=== PATIENT | female | born 1990 | race Caucasian/White ===

== ENCOUNTER 2016-11-22 14:23 | Emergency (ER) | payer BC ==
--- NOTE | 2016-11-22 15:22 | ER Document Report ---
ED GI/ - General Chief Complaint: Pelvic Pain Stated Complaint: ABDOMINAL PAIN,VOMITING Time Seen by Provider: 11/22/16 14:51 Mode of Arrival: Ambulatory Information source: Patient Notes: 26-year-old female presents to ED for pelvic pain that started on Tuesday with nausea and vomiting and lightheadedness. She is currently on her. This been going on for over a week. She states she has a history of ovarian cyst. - HPI Patient complains to provider of: Pelvic pain Onset: Other - Since Tuesday Timing/Duration: Persistent Quality of pain: Cramping, Sharp Severity at maximum: Moderate Severity in ED: Moderate Pain Level: 2 Location: Pelvis Vaginal bleeding (Compared to normal period): Similar - On her. Now LMP: States it has been going on for the last week Associated symptoms: Other - Pelvic pain Exacerbated by: Movement Relieved by: Denies Similar symptoms previously: Yes Recently seen / treated by doctor: No - Related Data Allergies/Adverse Reactions: No Known Allergies Allergy (Verified 11/22/16 17:51) Past Medical History - General Information source: Patient - Social History Smoking Status: Never Smoker Cigarette use (# per day): No Chew tobacco use (# tins/day): No Smoking Education Provided: No Frequency of alcohol use: None Drug Abuse: None Occupation: None Lives with: Alone Family History: Malignancy Patient has suicidal ideation: No Patient has homicidal ideation: No - Past Medical History Cardiac Medical History: Reports: None Pulmonary Medical History: Reports: None EENT Medical History: Reports: None Neurological Medical History: Reports: None Endocrine Medical History: Reports: None Renal/ Medical History: Reports: Hx Ovarian Cysts - PCO S Malignancy Medical History: Reports: None GI Medical History: Reports: Hx Gastroesophageal Reflux Disease, Hx Irritable Bowel, Hx Colonoscopy, Hx Endoscopy Musculoskeltal Medical History: Reports Hx Musculoskeletal Deformity, Reports Hx Musculoskeletal Trauma Psychiatric Medical History: Reports: Hx Anxiety Traumatic Medical History: Reports: Hx Fractures - Rib and toe Infectious Medical History: Reports: Hx C-Diff Past Surgical History: Reports: Hx Cholecystectomy - Immunizations Immunizations up to date: Yes Hx Diphtheria, Pertussis, Tetanus Vaccination: Yes Review of Systems - Review of Systems Constitutional: No symptoms reported EENT: No symptoms reported Cardiovascular: No symptoms reported Respiratory: No symptoms reported Gastrointestinal: No symptoms reported Genitourinary: No symptoms reported Female Genitourinary: Vaginal bleeding, Other - Pelvic pain Musculoskeletal: No symptoms reported Skin: No symptoms reported Hematologic/Lymphatic: No symptoms reported Neurological/Psychological: No symptoms reported -: Yes All other systems reviewed and negative Physical Exam - Vital signs Vitals: Temp Pulse Resp BP Pulse Ox 98.3 F 80 14 124/89 H 100 11/22/16 14:31 11/22/16 14:31 11/22/16 14:31 11/22/16 14:31 11/22/16 14:31 Interpretation: Normal - General General appearance: Appears well, Alert - HEENT Head: Normocephalic, Atraumatic Eyes: Normal Pupils: PERRL - Respiratory Respiratory status: No respiratory distress Chest status: Nontender Breath sounds: Normal Chest palpation: Normal - Cardiovascular Rhythm: Regular Heart sounds: Normal auscultation Murmur: No - Abdominal Inspection: Normal Distension: No distension Bowel sounds: Normal Tenderness: Tender - Pelvic pain Organomegaly: No organomegaly - Genitourinary External exam: Normal Speculum exam: Cervix closed Vaginal bleeding: Mild Bimanuel exam: Bladder/Urethral tender, Adnexal tenderness - left - Back Back: Normal, Nontender - Extremities General upper extremity: Normal inspection, Nontender, Normal color, Normal ROM , Normal temperature General lower extremity: Normal inspection, Nontender, Normal color, Normal ROM , Normal temperature, Normal weight bearing. No: Mary Ann's sign - Neurological Neuro grossly intact: Yes Cognition: Normal Orientation: AAOx4 Dinesh Coma Scale Eye Opening: Spontaneous Dinesh Coma Scale Verbal: Oriented Dinesh Coma Scale Motor: Obeys Commands [place] Coma Scale Total: 15 Speech: Normal Motor strength normal: LUE, RUE, LLE, RLE Sensory: Normal - Psychological Associated symptoms: Normal affect, Normal mood - Skin Skin Temperature: Warm Skin Moisture: Dry Skin Color: Normal Course - Re-evaluation Re-evalutation: 11/22/16 19:[address] Desai recommends patient be followed up tomorrow. [facility] She stated that if the patient will call at 8:00 and she could get a follow-up appointment tomorrow. A written report of the ultrasound and her labs given to the patient and discussed with patient. Patient to call the office in the morning to follow-up. - Vital Signs Vital signs: Temp Pulse Resp BP Pulse Ox 98.1 F 83 16 122/78 100 11/22/16 18:20 11/22/16 18:20 11/22/16 18:20 11/22/16 18:20 11/22/16 18:20 - Laboratory Result Diagrams: 11/22/16 15:25 11/22/16 15:25 - Diagnostic Test Radiology reviewed: Image reviewed, Reports reviewed Discharge - Discharge Clinical Impression: Pelvic pain Nausea & vomiting Qualifiers: Vomiting type: unspecified Vomiting Intractability: non-intractable Qualified Code(s): R11.2 - Nausea with vomiting, unspecified Condition: Stable Disposition: HOME, SELF-CARE Additional Instructions: PELVIC PAIN: There are many causes of pain in the pelvic area. The cause could be the tubes, ovaries, uterus, intestines, appendix, pelvic muscles and connective tissue, or the urinary tract. The cause of your pelvic pain is not clear. However, it seems safe to treat you outside the hospital. If the pain sounds like a temporary problem, we sometimes wait to see if it goes away. Other patients may need additional tests, such as pelvic ultrasound or cultures. Conditions may change. Call us or come back for reexamination if any problems occur, such as: (1) Pain that becomes more severe, steady, or becomes concentrated in one specific area. Also, pain that is more severe with movement or coughing. (2) Vomiting that persists or becomes more frequent. (3) Blood in the vomitus, urine, or bowel movements. Blood in the stool may have a tarry or black appearance. (4) Shaking chills or fever greater than 100 degrees. (5) The abdomen becomes more distended or swollen. (6) Bowel movements cease. (7) Heavy vaginal bleeding. VOMITING: Vomiting (or nausea without vomiting) can be caused by many other different problems. It can mean that something's wrong with the stomach, such as ulcers or inflammation or the intestinal tract, such as appendicitis. But it can also be a symptom of a problem that has nothing to do with the stomach or intestines. Vomiting is common with severe headaches, earaches, tonsillitis, and kidney infections, etc. We see it with pneumonia or heart attacks. Drugs can cause nausea and vomiting. Many abdominal problems cause vomiting; for example, gallstones, kidney stones, pancreatitis, and intestinal obstruction ( blocked bowels). In most cases, curing the vomiting depends on fixing the problem that caused it. For temporary relief, we may use an anti-nausea medicine. For home use, we can prescribe suppositories, chewable pills, pills that dissolve in the mouth, or liquid anti-nausea drugs. If the vomiting seems to be caused by a problem in the stomach, acid-suppressing drugs may be prescribed as well. It's important to avoid dehydration. Sip small amounts of clear liquids ( soft drinks, tea, broth, etc) . Try to take fluids frequently even if you are vomiting to prevent dehydration. Take increasing amounts of fluid and when liquids are being consumed successfully, advance to small amounts of bland food (toast, soups, mashed potatoes, etc.) until you are able to resume a regular diet. Avoid aspirin, tobacco, and alcohol. If the vomiting worsens, if the problem that's making you vomit worsens, or if there's evidence of bleeding in the stomach (such as black, tarry stool, or bloody or black vomit), you should return immediately. Also, return if abdominal pain worsens or becomes localized to one area or you develop high fever. Call your doctor if you aren't improved in 24 hours. VIRAL SYNDROME: The physician has diagnosed a viral infection. Viruses not only cause "colds," but can cause many different symptoms including generalized aching, fever, headache, cough, diarrhea, nausea, vomiting, and fatigue. The treatment, for the most part, is simply relief of symptoms. This means that antibiotics are usually not given. Rest, fluids, pain medications and, occasionally, medication for the specific symptoms that are most bothersome will be prescribed. Use good handwashing to avoid passing the virus to others. Shared toys should be cleaned with disinfectant. Clean the toilets, sinks, and counter surfaces in bathrooms. Launder clothing in hot water. Contact the physician if you develop any new or unusual symptoms such as severe headache, stiff neck, high fever, chest pain, productive cough, or shortness of breath. You should be rechecked if you don't see marked improvement within seven to 10 days. INTRAVENOUS (I V) FLUIDS: As part of your care today, you received intravenous (IV) fluids. IV fluids are administered to patients who are dehydrated or to those who have certain chemical (electrolyte) abnormalities that need correcting. ANTINAUSEA MEDICATION: You have been given a medication to suppress nausea and vomiting. This type of medication can be given as a shot, pill, or suppository. It will usually last for many hours. Pills and shots usually last six to eight hours. For the typical illness, only one or two doses of the medication may be necessary. Mild lightheadedness may occur. This type of medicine can cause drowsiness. Do not drive or operate dangerous machinery while under its influence. Do not mix with alcohol. See your doctor at once if you have muscle spasms or tightness, or uncontrollable motions (particularly of the neck, mouth, or jaw). Persistent vomiting or severe lightheadedness should also be evaluated by the physician. [facility] at 8:00 in the morning and schedule an appointment for tomorrow follow-up with your ultrasound. Note that I spoke with Dr. Rodo argueta and she said she will make sure that you were scheduled an appointment tomorrow. FOLLOW-UP CARE: If you have been referred to a physician for follow-up care, call the physician s office for an appointment as you were instructed or within the next two days. If you experience worsening or a significant change in your symptoms, notify the physician immediately or return to the Emergency Department at any time for re-evaluation. Prescriptions: Ondansetron [Zofran Odt 4 mg Tablet] 1 tab PO Q6H #15 tab.rapdis Forms: Elevated Blood Pressure Referrals: [facility] [Provider Group] - Follow up as needed
[2016-11-22 15:39] LABS: ABSOLUTE EOSINOPHILS # (AUTO) 0.1 10^3/uL (0.0-0.6); ABSOLUTE LYMPHOCYTES (AUTO) 2.3 10^3/uL (0.5-4.7); ABSOLUTE MONOCYTES (AUTO) 0.4 10^3/uL (0.1-1.4); ABSOLUTE NEUT (AUTO) 2.7 10^3/uL (1.7-8.2); BASOPHILS % (AUTO) 0.4 % (0-2); EOSINOPHILS % (AUTO) 1.1 % (0-6); HEMATOCRIT 39.8 % (36.0-47.0); HEMOGLOBIN 13.2 g/dL (12.0-15.5); HGB HCT DIFFERENCE -0.2; LYMPHOCYTES % (AUTO) 41.6 % (13-45); MEAN CORPUSCULAR HEMOGLOBIN 30.8 pg (27.0-33.4); MEAN CORPUSCULAR HGB CONC 33.1 g/dL (32.0-36.0); MEAN CORPUSCULAR VOLUME 93 fl (80-97); MONOCYTES % (AUTO) 7.2 % (3-13); RED BLOOD COUNT 4.27 10^6/uL (3.72-5.28); RED CELL DISTRIBUTION WIDTH 13.2 % (11.5-14.0); SEGMENTED NEUTROPHILS % (AUTO) 49.7 % (42-78); WHITE BLOOD COUNT 5.5 10^3/uL (4.0-10.5)
[2016-11-22 15:56] LABS: BLOOD UREA NITROGEN 10 mg/dL (7-20); CALCIUM 9.2 mg/dL (8.4-10.2); CARBON DIOXIDE 28 mmol/L (22-30); CHLORIDE 106 mmol/L (98-107); CREATININE RESULT 0.89 mg/dL (0.52-1.25); GLUCOSE 97 mg/dL (75-110); POTASSIUM 4.5 mmol/L (3.6-5.0)
[2016-11-22 15:57] LABS: ALANINE AMINOTRANSFERASE 29 U/L (9-52); ALBUMIN 4.1 g/dL (3.5-5.0); ALKALINE PHOSPHATASE 64 U/L (38-126); ANION GAP 7 (5-19); ASPARTATE AMINO TRANSFERASE 25 U/L (14-36); BILIRUBIN,DIRECT 0.2 mg/dL (0.0-0.4); BILIRUBIN,TOTAL 0.5 mg/dL (0.2-1.3); SODIUM 140.6 mmol/L (137-145); TOTAL PROTEIN 6.9 g/dL (6.3-8.2)
[2016-11-22 16:11] LABS: AMORPHOUS SEDIMENT,URINE TRACE /HPF; APPEARANCE,URINE CLOUDY; BILIRUBIN,URINE NEGATIVE (NEGATIVE); GLUCOSE, URINE NEGATIVE (NEGATIVE); KETONES,URINE NEGATIVE (NEGATIVE); LEUKOCYTE ESTERASE,URINE NEGATIVE (NEGATIVE); NITRITE,URINE NEGATIVE (NEGATIVE); PROTEIN,URINE NEGATIVE (NEGATIVE); URINE SPECIFIC GRAVITY 1.018; UROBILINOGEN,URINE NEGATIVE mg/dL (<2.0)
--- NOTE | 2016-11-22 17:20 | RADIOLOGY REPORT (SQ) ---
EXAM DESCRIPTION: U/S NON OB PEL TV W/DOPPLER COMPLETED DATE/TIME: 11/22/2016 4:40 pm REASON FOR STUDY: left pelvic pain COMPARISON: None. TECHNIQUE: Dynamic and static grayscale images acquired of the pelvis via transvaginal approach and recorded on PACS. Additional selected color Doppler and spectral images recorded. LIMITATIONS: None. FINDINGS: UTERUS: Contour normal. ENDOMETRIAL STRIPE: No focal or generalized thickening. No masses. CERVIX: There is a 2 x 1.7 x 1.1 cm irregular soft tissue fullness in the posterior aspect of the cer vix with internal color flow on Doppler interrogation. RIGHT OVARY: No abnormal masses. RIGHT OVARY DOPPLER: Normal arterial vascular flow without evidence for torsion. LEFT OVARY: No abnormal masses. LEFT OVARY DOPPLER: Normal arterial vascular flow without evidence for torsion. FREE FLUID: Trace cul-de-sac free fluid. OTHER: No other significant finding. MEASUREMENTS: UTERUS: 6.8 x 4.4 x 2.7 cm ENDOMETRIAL STRIPE: 3 mm RIGHT OVARY: 2.7 x 2.2 x 1.0 cm LEFT OVARY: 2.1 x 1.6 x 1.4 cm IMPRESSION: There is a 2 x 1.7 x 1.1 cm irregular soft tissue fullness in the posterior aspect of th e cervix with internal color flow on Doppler interrogation. HOME HEALTH SPEECH THERAPIST consultation is recommended for furt her evaluation. TECHNICAL DOCUMENTATION: JOB ID: [id number]- All Rights Reserved
[2016-11-22 17:27] LABS: CHLAM PCR NOT DETECTED (NOT DETECT)
[2016-11-22] MEDS ORDERED: ONDANSETRON 4 MG TAB.RAPDIS PO ONE (17:54)
[2016-11-22 18:29] VITALS: BP 122/78
== END 2016-11-22 18:41 | disposition home or self-care (01) ==
LOC: ER 14:23
DX: R10.2 Pelvic and perineal pain (principal); R11.2 Nausea with vomiting, unspecified
CPT/HCPCS: 99284; 36415; 87210; 84703; 85025; 80053; 81001; 87491; 87591; 76830; 93976; S0119

== ENCOUNTER 2016-11-25 11:49 | Emergency (ER) | payer BC ==
[2016-11-25] MEDS ORDERED: KETOROLAC TROMETHAMINE 60 MG/2 ML SDV IM ONE (12:06)
--- NOTE | 2016-11-25 12:12 | ER Document Report ---
ED Medical Screen (RME) - General Chief Complaint: Abdominal Pain Stated Complaint: LEFT SIDE PAIN,LIGHTHEADED,NAUSEA Time Seen by Provider: 11/25/16 12:01 Mode of Arrival: Ambulatory Information source: Patient Notes: pt presents with c/o LLQ AND LUQ abdominal pain for over a week. History of ovarian cyst but reports they never lasted this long. She was also evaluated in the emergency department a few days ago and evaluated by Dr. downs on tuesday. She reports she went by the OB office today and was told to come the emergency department if she was in that much pain. TRAVEL OUTSIDE OF THE [place] IN LAST 30 DAYS: No - Related Data Allergies/Adverse Reactions: amoxicillin Allergy (Verified 11/25/16 11:53) clavulanic acid [From Augmentin] Allergy (Verified 11/25/16 11:53) Penicillins Allergy (Verified 11/25/16 11:53) tramadol Allergy (Verified 11/25/16 11:53) Past Medical History Renal/ Medical History: Reports: Hx Ovarian Cysts - PCO S. Denies: Hx Peritoneal Dialysis GI Medical History: Reports: Hx Gastroesophageal Reflux Disease, Hx Irritable Bowel, Hx Colonoscopy, Hx Endoscopy Musculoskeltal Medical History: Reports Hx Musculoskeletal Deformity, Reports Hx Musculoskeletal Trauma Psychiatric Medical History: Reports: Hx Anxiety Traumatic Medical History: Reports: Hx Fractures - Rib and toe Infectious Medical History: Reports: Hx C-Diff Past Surgical History: Reports: Hx Cholecystectomy - Immunizations Immunizations up to date: Yes Hx Diphtheria, Pertussis, Tetanus Vaccination: Yes Physical Exam - Vital signs Vitals: Temp Pulse Resp BP Pulse Ox 98.3 F 69 18 125/81 99 11/25/16 11:53 11/25/16 11:53 11/25/16 11:53 11/25/16 11:53 11/25/16 11:53 Course - Re-evaluation Re-evalutation: 11/25/16 12:12 dr farias consulted agree's with ct - Vital Signs Vital signs: Temp Pulse Resp BP Pulse Ox 98.3 F 69 18 125/81 99 11/25/16 11:53 11/25/16 11:53 11/25/16 11:53 11/25/16 11:53 11/25/16 11:53
[2016-11-25] MEDS ORDERED: ONDANSETRON 4 MG TAB.RAPDIS PO ONE (12:20)
[2016-11-25 13:14] LABS: ABSOLUTE EOSINOPHILS # (AUTO) 0.1 10^3/uL (0.0-0.6); ABSOLUTE LYMPHOCYTES (AUTO) 2.1 10^3/uL (0.5-4.7); ABSOLUTE MONOCYTES (AUTO) 0.2 10^3/uL (0.1-1.4); ABSOLUTE NEUT (AUTO) 1.8 10^3/uL (1.7-8.2); BASOPHILS % (AUTO) 0.3 % (0-2); EOSINOPHILS % (AUTO) 1.3 % (0-6); HEMATOCRIT 45.2 % (36.0-47.0); HGB HCT DIFFERENCE -0.2; LYMPHOCYTES % (AUTO) 50.3 % (13-45); MEAN CORPUSCULAR HEMOGLOBIN 31.1 pg (27.0-33.4); MEAN CORPUSCULAR HGB CONC 33.2 g/dL (32.0-36.0); MEAN CORPUSCULAR VOLUME 94 fl (80-97); MONOCYTES % (AUTO) 5.7 % (3-13); RED BLOOD COUNT 4.82 10^6/uL (3.72-5.28); RED CELL DISTRIBUTION WIDTH 13.4 % (11.5-14.0); SEGMENTED NEUTROPHILS % (AUTO) 42.4 % (42-78); WHITE BLOOD COUNT 4.2 10^3/uL (4.0-10.5)
[2016-11-25 13:34] LABS: APPEARANCE,URINE CLEAR; BILIRUBIN,URINE NEGATIVE (NEGATIVE); GLUCOSE, URINE NEGATIVE (NEGATIVE); KETONES,URINE NEGATIVE (NEGATIVE); LEUKOCYTE ESTERASE,URINE NEGATIVE (NEGATIVE); NITRITE,URINE NEGATIVE (NEGATIVE); PROTEIN,URINE NEGATIVE (NEGATIVE); URINE SPECIFIC GRAVITY 1.025; UROBILINOGEN,URINE NEGATIVE mg/dL (<2.0)
[2016-11-25 13:36] LABS: ALANINE AMINOTRANSFERASE 26 U/L (9-52); ALBUMIN 4.6 g/dL (3.5-5.0); ALKALINE PHOSPHATASE 72 U/L (38-126); ANION GAP 11 (5-19); ASPARTATE AMINO TRANSFERASE 27 U/L (14-36); BILIRUBIN,DIRECT 0.3 mg/dL (0.0-0.4); BILIRUBIN,TOTAL 0.5 mg/dL (0.2-1.3); BLOOD UREA NITROGEN 8 mg/dL (7-20); CALCIUM 9.7 mg/dL (8.4-10.2); CARBON DIOXIDE 25 mmol/L (22-30); CHLORIDE 106 mmol/L (98-107); CREATININE RESULT 0.85 mg/dL (0.52-1.25); GLUCOSE 80 mg/dL (75-110); POTASSIUM 5.3 mmol/L (3.6-5.0); SODIUM 141.7 mmol/L (137-145)
[2016-11-25] MEDS ORDERED: METOCLOPRAMIDE HCL INJ/PF 10 MG/2 ML SDV IV ONE (15:34)
[2016-11-25] MEDS ORDERED: MORPHINE SULFATE 10 MG/ML INJ IV ONE ×2 (15:34→17:36)
--- NOTE | 2016-11-25 15:35 | ER Document Report ---
ED GI/ - General Chief Complaint: Abdominal Pain Stated Complaint: LEFT SIDE PAIN,LIGHTHEADED,NAUSEA Time Seen by Provider: 11/25/16 12:01 Mode of Arrival: Ambulatory Information source: Patient Notes: Patient is a 26-year-old female who presents to the emergency department today for left flank, left abdominal pain 7 days. Patient has been seen here once within that timeframe for the same complaint, received a pelvic exam, pelvic ultrasound and lab work which were all normal. She did follow up with her OB/ TAR ROOFER 2 days later, who also gave her a normal bill of health. patient has no history of kidney stones but has complained of blood in her urine over the past 7 days. She states that it does feel like it comes around the side into the abdomen but starts in the flank. She has a family history of kidney stones. she denies any fever, chills, dysuria TRAVEL OUTSIDE OF THE [place] IN LAST 30 DAYS: No - Related Data Allergies/Adverse Reactions: amoxicillin Allergy (Verified 11/25/16 11:53) clavulanic acid [From Augmentin] Allergy (Verified 11/25/16 11:53) Penicillins Allergy (Verified 11/25/16 11:53) tramadol Allergy (Verified 11/25/16 11:53) Past Medical History - General Information source: Patient - Social History Smoking Status: Unknown if Ever Smoked Family History: Malignancy Patient has suicidal ideation: No Patient has homicidal ideation: No Renal/ Medical History: Reports: Hx Ovarian Cysts - PCO S. Denies: Hx Peritoneal Dialysis GI Medical History: Reports: Hx Gastroesophageal Reflux Disease, Hx Irritable Bowel, Hx Colonoscopy, Hx Endoscopy Musculoskeltal Medical History: Reports Hx Musculoskeletal Deformity, Reports Hx Musculoskeletal Trauma Psychiatric Medical History: Reports: Hx Anxiety Traumatic Medical History: Reports: Hx Fractures - Rib and toe Infectious Medical History: Reports: Hx C-Diff Past Surgical History: Reports: Hx Cholecystectomy - Immunizations Immunizations up to date: Yes Hx Diphtheria, Pertussis, Tetanus Vaccination: Yes Review of Systems - Review of Systems Constitutional: No symptoms reported EENT: No symptoms reported Cardiovascular: No symptoms reported Respiratory: No symptoms reported Gastrointestinal: No symptoms reported Genitourinary: See HPI Female Genitourinary: No symptoms reported Musculoskeletal: No symptoms reported Skin: No symptoms reported Hematologic/Lymphatic: No symptoms reported Neurological/Psychological: No symptoms reported Physical Exam - Vital signs Vitals: Temp Pulse Resp BP Pulse Ox 98.3 F 69 18 125/81 99 11/25/16 11:53 11/25/16 11:53 11/25/16 11:53 11/25/16 11:53 11/25/16 11:53 - Notes Notes: PHYSICAL EXAMINATION: GENERAL: Uncomfortable appearing, holding left flank, but in no acute distress. HEAD: Atraumatic, normocephalic. EYES: Pupils equal round and reactive to light, extraocular movements intact, sclera anicteric, conjunctiva are normal. NECK: Normal range of motion, supple without lymphadenopathy LUNGS: CTAB and equal. No wheezes rales or rhonchi. HEART: Regular rate and rhythm without murmurs ABDOMEN: Soft, mild left lower quadrant tenderness. No guarding, no rebound BACK: no vertebral tenderness, normal ROM GI/: left CVA tenderness EXTREMITIES: Normal range of motion, no pitting edema. No cyanosis. NEUROLOGICAL: Cranial nerves grossly intact. Normal sensory/motor exams. PSYCH: Normal mood, normal affect. SKIN: Warm, Dry, normal turgor, no rashes or lesions noted S Course - Re-evaluation Re-evalutation: 11/25/16 18:31 Patient's lab work is unremarkable today including a normal urinalysis. I will treat her for a kidney stone at thatClinically make sense more than anything else. CT was negative today. - Vital Signs Vital signs: Temp Pulse Resp BP Pulse Ox 98.0 F 87 20 116/73 99 11/25/16 18:10 11/25/16 18:10 11/25/16 18:10 11/25/16 18:10 11/25/16 18:10 - Laboratory Result Diagrams: 11/25/16 12:47 11/25/16 12:47 Laboratory results interpreted by me: 11/25/16 11/25/16 12:47 12:47 Lymphocytes % 50.3 H Potassium 5.3 H Discharge - Discharge Clinical Impression: Flank pain Condition: Stable Disposition: HOME, SELF-CARE Additional Instructions: Return immediately for any new or worsening symptoms. Follow up with primary care provider, call tomorrow to make followup appointment. Follow up with urologist if symptoms do not resolve in 7 days. [facility] [place] [facility] [address] [place], [place] [phone] [place] [facility]. [place], [place] [phone] Prescriptions: Hydrocodone/Acetaminophen [[place] 5-325 mg Tablet] 1 tab PO Q4 PRN #15 tablet PRN Reason: Promethazine HCl [Phenergan 25 mg Tablet] 25 - 50 mg PO ASDIR PRN #12 tablet PRN Reason: Tamsulosin HCl [Flomax 0.4 mg Cap.sr] 0.4 mg PO DAILY #7 cap.sr.24h
--- NOTE | 2016-11-25 16:37 | RADIOLOGY REPORT (SQ) ---
EXAM DESCRIPTION: CT ABD/PELVIS WITH IV ORAL COMPLETED DATE/TIME: 11/25/2016 3:19 pm REASON FOR STUDY: pit- abd pain COMPARISON: None. TECHNIQUE: CT scan of the abdomen and pelvis performed using helical scanning technique with dynamic intravenous contrast injection. Oral contrast. Images reviewed with lung, soft tissue, and bone win dows. Reconstructed coronal and sagittal MPR images reviewed. Delayed images for evaluation of the ur inary system also acquired. All images stored on PACS. All CT scanners at this facility use dose modulation, iterative reconstruction, and/or weight based d osing when appropriate to reduce radiation dose to as low as reasonably achievable (ALARA). [facility]: Dose Right [facility]: CareDose [facility]: Dose Right [facility]: Teradose 4D [facility]: C9 Media CONTRAST TYPE AND DOSE: 58mL Isovue 370- low osmolar. RENAL FUNCTION: Creatinine 0.85 BUN 8 RADIATION DOSE: 10.65mGy. LIMITATIONS: None. FINDINGS: LOWER CHEST: No significant findings. No nodules or infiltrates. LIVER: Normal size. No masses or dilated ducts. SPLEEN: Normal size. No focal lesions. PANCREAS: No masses. No significant calcifications. No adjacent inflammation or peripancreatic fluid collections. Pancreatic duct not dilated. GALLBLADDER: Surgically absent. ADRENAL GLANDS: No significant masses or asymmetry. RIGHT KIDNEY AND URETER: No solid masses. No significant calcifications. No hydronephrosis or hyd roureter. LEFT KIDNEY AND URETER: No solid masses. No significant calcifications. No hydronephrosis or hydr oureter. AORTA AND VESSELS: No aneurysm. No dissection. Renal arteries, SMA, celiac without stenosis. RETROPERITONEUM: No retroperitoneal adenopathy, hemorrhage or masses. BOWEL AND PERITONEAL CAVITY: No masses or inflammatory changes. No free fluid or peritoneal masses. APPENDIX: Not identified PELVIS: No mass or free fluid. Normal bladder. ABDOMINAL WALL: No masses. No hernias. BONES: No significant or acute findings. OTHER: No other significant finding. IMPRESSION: NO SIGNIFICANT OR ACUTE FINDING IN THE ABDOMEN OR PELVIS ON CT SCAN WITH IV CONTRAST. TECHNICAL DOCUMENTATION: JOB ID: [id number] Quality ID # [id number]: Final reports with documentation of one or more dose reduction techniques (e.g., Au tomated exposure control, adjustment of the mA and/or kV according to patient size, use of iterative reconstruction technique) 2010 [employer]- All Rights Reserved
[2016-11-25] MEDS ORDERED: ONDANSETRON HCL INJ/PF 4 MG/2 ML SDV IV ONE (17:36)
[2016-11-25] MEDS ORDERED: ONDANSETRON ODT 4 MG TAB (6 TAB/DSPK) PO PRN (17:54)
[2016-11-25] MEDS ORDERED: HYDROCODONE/ACETAMINOPHEN 5-325 MG 6 TAB/DSPK PO PRN (17:54)
[2016-11-25 18:13] VITALS: BP 116/73
== END 2016-11-25 18:17 | disposition home or self-care (01) ==
LOC: ER 11:49
DX: R10.9 Unspecified abdominal pain (principal); R42 Dizziness and giddiness; R11.0 Nausea; Z88.0 Allergy status to penicillin; Z90.49 Acquired absence of other specified parts of digestive tract
CPT/HCPCS: 96376; 99284; 96372; 96374; 96375; 36415; 83690; 84703; 85025; 80053; 81001; 74177; J1885; S0119; J2765; J2270; J2405

== ENCOUNTER 2017-01-11 05:36 | Emergency (ER) | payer BC ==
[2017-01-11] MEDS ORDERED: ONDANSETRON HCL INJ/PF 4 MG/2 ML SDV IV ONE (06:29)
[2017-01-11] MEDS ORDERED: NORMAL SALINE 1000 ML 1,000 ML IV ONE ×2 (06:29→07:50)
[2017-01-11] MEDS ORDERED: KETOROLAC TROMETHAMINE INJ/PF 30 MG/1 ML SDV IV ONE (07:39)
[2017-01-11] MEDS ORDERED: PROCHLORPERAZINE EDISYLATE INJ 10 MG/2 ML VIAL IV ONE (07:39)
--- NOTE | 2017-01-11 08:19 | RADIOLOGY REPORT (SQ) ---
EXAM DESCRIPTION: CT HEAD WITHOUT COMPLETED DATE/TIME: 01/11/2017 8:08 am REASON FOR STUDY: rodriguez COMPARISON: None. TECHNIQUE: Axial images acquired through the brain without intravenous contrast. Images reviewed wi th bone, brain and subdural windows. Images stored on PACS. All CT scanners at this facility use dose modulation, iterative reconstruction, and/or weight based d osing when appropriate to reduce radiation dose to as low as reasonably achievable (ALARA). [facility]: Dose Right [facility]: CareDose [facility]: Dose Right [facility]: Teradose 4D [facility]: Smart [employer] RADIATION DOSE: Up-to-date CT equipment and radiation dose reduction techniques were employed. CTDIv ol: 64.6 mGy. DLP: 1034 mGy-cm. mGy. LIMITATIONS: None. FINDINGS: VENTRICLES: Normal size and contour. CEREBRUM: No masses. No hemorrhage. No midline shift. Normal mi/white matter differentiation. N o evidence for acute infarction. CEREBELLUM: No masses. No hemorrhage. No alteration of density. No evidence for acute infarction. EXTRAAXIAL SPACES: No fluid collections. No masses. ORBITS AND GLOBE: No intra- or extraconal masses. Normal contour of globe without masses. CALVARIUM: No fracture. PARANASAL SINUSES: No fluid or mucosal thickening. SOFT TISSUES: No mass or hematoma. OTHER: No other significant finding. IMPRESSION: NORMAL BRAIN CT WITHOUT CONTRAST. TECHNICAL DOCUMENTATION: JOB ID: [id number] Quality ID # [id number]: Final reports with documentation of one or more dose reduction techniques (e.g., Au tomated exposure control, adjustment of the mA and/or kV according to patient size, use of iterative reconstruction technique) 2010 [employer]- All Rights Reserved
[2017-01-11 09:02] LABS: ABSOLUTE EOSINOPHILS # (AUTO) 0.1 10^3/uL (0.0-0.6); ABSOLUTE LYMPHOCYTES (AUTO) 2.3 10^3/uL (0.5-4.7); ABSOLUTE MONOCYTES (AUTO) 0.4 10^3/uL (0.1-1.4); ABSOLUTE NEUT (AUTO) 4.1 10^3/uL (1.7-8.2); BASOPHILS % (AUTO) 0.2 % (0-2); EOSINOPHILS % (AUTO) 1.2 % (0-6); HEMATOCRIT 38.2 % (36.0-47.0); HEMOGLOBIN 12.9 g/dL (12.0-15.5); HGB HCT DIFFERENCE 0.5; LYMPHOCYTES % (AUTO) 32.9 % (13-45); MEAN CORPUSCULAR HEMOGLOBIN 31.3 pg (27.0-33.4); MEAN CORPUSCULAR HGB CONC 33.9 g/dL (32.0-36.0); MEAN CORPUSCULAR VOLUME 92 fl (80-97); MONOCYTES % (AUTO) 5.7 % (3-13); RED BLOOD COUNT 4.14 10^6/uL (3.72-5.28); RED CELL DISTRIBUTION WIDTH 12.6 % (11.5-14.0); WHITE BLOOD COUNT 6.9 10^3/uL (4.0-10.5)
[2017-01-11 09:25] LABS: URINE BARBITURATES SCREEN NEGATIVE; URINE METHADONE SCREEN NEGATIVE; URINE OPIATES LOW NEGATIVE; URINE PHENCYCLIDINE SCREEN NEGATIVE
--- NOTE | 2017-01-11 10:29 | ER Document Report ---
ED General - General Chief Complaint: Headache Stated Complaint: HEADACHE,NAUSEA Time Seen by Provider: 01/11/17 07:39 TRAVEL OUTSIDE OF THE U.S. IN LAST 30 DAYS: No - HPI Patient complains to provider of: Migraine headache Notes: Patient coming in for evaluation of migraine headache. Patient states history of headaches recently moved from [place] to [place] has not established herself with a primary care physician or neurologist. Denies any fevers chills nausea vomiting patient does state photophobia denies any neck pain. Patient states similar to her migraines in the past however not relieving with any home medications. Patient states that she is not has not had any intercourse in over a month. - Related Data Allergies/Adverse Reactions: amoxicillin Allergy (Verified 11/25/16 11:53) clavulanic acid [From Augmentin] Allergy (Verified 11/25/16 11:53) Penicillins Allergy (Verified 11/25/16 11:53) tramadol Allergy (Verified 11/25/16 11:53) Past Medical History - Social History Smoking Status: Unknown if Ever Smoked Family History: Malignancy Patient has suicidal ideation: No Patient has homicidal ideation: No Renal/ Medical History: Reports: Hx Ovarian Cysts - PCO S. Denies: Hx Peritoneal Dialysis GI Medical History: Reports: Hx Gastroesophageal Reflux Disease, Hx Irritable Bowel, Hx Colonoscopy, Hx Endoscopy Musculoskeltal Medical History: Reports Hx Musculoskeletal Deformity, Reports Hx Musculoskeletal Trauma Psychiatric Medical History: Reports: Hx Anxiety Traumatic Medical History: Reports: Hx Fractures - Rib and toe Infectious Medical History: Reports: Hx C-Diff Past Surgical History: Reports: Hx Cholecystectomy - Immunizations Immunizations up to date: Yes Hx Diphtheria, Pertussis, Tetanus Vaccination: Yes Review of Systems - Review of Systems Constitutional: No symptoms reported EENT: No symptoms reported Cardiovascular: No symptoms reported Respiratory: No symptoms reported Gastrointestinal: No symptoms reported Genitourinary: No symptoms reported Female Genitourinary: No symptoms reported Musculoskeletal: No symptoms reported Skin: No symptoms reported Hematologic/Lymphatic: No symptoms reported Neurological/Psychological: Headaches -: Yes All other systems reviewed and negative Physical Exam - Vital signs Vitals: Temp Pulse Resp BP Pulse Ox 98.2 F 105 H 20 131/74 H 100 01/11/17 05:44 01/11/17 05:44 01/11/17 05:44 01/11/17 05:44 01/11/17 05:44 Interpretation: Normal - General General appearance: Appears well, Alert - HEENT Head: Normocephalic, Atraumatic Eyes: Normal Conjunctiva: Normal Cornea: Normal Pupils: PERRL Ears: Normal External canal: Normal Tympanic membrane: Normal Sinus: Normal Nasal: Normal Mouth/Lips: Normal Pharynx: Normal Neck: Normal - Respiratory Respiratory status: No respiratory distress Chest status: Nontender Breath sounds: Normal Chest palpation: Normal - Cardiovascular Rhythm: Regular Heart sounds: Normal auscultation Murmur: No - Abdominal Inspection: Normal Distension: No distension Bowel sounds: Normal Tenderness: Nontender Organomegaly: No organomegaly - Back Back: Normal, Nontender - Extremities General upper extremity: Normal inspection, Nontender, Normal color, Normal ROM , Normal temperature General lower extremity: Normal inspection, Nontender, Normal color, Normal ROM , Normal temperature, Normal weight bearing. No: Mary Ann's sign - Neurological Neuro grossly intact: Yes Cognition: Normal Orientation: AAOx4 [place] Coma Scale Eye Opening: Spontaneous [place] Coma Scale Verbal: Oriented Dinesh Coma Scale Motor: Obeys Commands [place] Coma Scale Total: 15 Speech: Normal Motor strength normal: LUE, RUE, LLE, RLE Sensory: Normal - Psychological Associated symptoms: Normal affect, Normal mood - Skin Skin Temperature: Warm Skin Moisture: Dry Skin Color: Normal Course - Re-evaluation Re-evalutation: 01/11/17 14:34 The patient presents with headache without signs of [employer] bleed, stroke, infection , or other serious etiology. The patient is neurologically intact. Given the extremely low risk of these diagnoses further testing and evaluation for these possibilities does not appear to be indicated at this time. The patient has been instructed to return if the symptoms worsen or change in any way.. - Vital Signs Vital signs: Temp Pulse Resp BP Pulse Ox 98.1 F 66 16 104/51 L 98 01/11/17 11:05 01/11/17 11:05 01/11/17 11:05 01/11/17 11:05 01/11/17 11:05 - Laboratory Result Diagrams: 01/11/17 08:43 01/11/17 08:43 Discharge - Discharge Clinical Impression: Headache Qualifiers: Headache type: unspecified Headache chronicity pattern: unspecified pattern Intractability: not intractable Qualified Code(s): R51 - Headache Condition: Good Disposition: HOME, SELF-CARE Instructions: Headache ([facility]), Family Physicians / Practices, Neurologist Additional Instructions: Your laboratory findings and CT scan today did not show any critical pathology. He may take the medication as provided please take medications together when you do experience a headache he may also take Tylenol and Motrin. I would recommend she follow-up with family physician provided or while the neurologist provided for your chronic conditions. Prescriptions: Ondansetron [Zofran Odt 4 mg Tablet] 4 mg PO Q6 #20 tab.rapdis Prochlorperazine Maleate [Compazine] 5 mg PO Q6 #20 tablet Forms: Return to Work
[2017-01-11 11:07] VITALS: BP 104/51
== END 2017-01-11 11:10 | disposition home or self-care (01) ==
LOC: ER 05:36
DX: G43.909 Migraine, unspecified, not intractable, without status migrainosus (principal); H53.149 Visual discomfort, unspecified; Z88.0 Allergy status to penicillin; Z88.5 Allergy status to narcotic agent
CPT/HCPCS: 99284; 96361; 96374; 96375; 36415; 85025; 81025; 80307; 70450; J1885; J0780; J2405; J7030

== ENCOUNTER 2017-06-13 09:53 | Emergency (ER) | payer BC, OTHER ==
[2017-06-13] MEDS ORDERED: MORPHINE SULFATE 10 MG/ML INJ IV ONE (10:17)
[2017-06-13] MEDS ORDERED: ONDANSETRON HCL INJ/PF 4 MG/2 ML SDV IV ONE ×2 (10:17→13:14)
[2017-06-13] MEDS ORDERED: NORMAL SALINE 1000 ML 1,000 ML IV ONE (10:17)
--- NOTE | 2017-06-13 10:18 | ER Document Report ---
ED Medical Screen (RME) - General Chief Complaint: Abdominal Pain Stated Complaint: ABDOMINAL PAIN Time Seen by Provider: 06/13/17 10:15 Notes: Patient has a history of ulcerative colitis. She states she is having a flareup and that this feels worse than normal. She states she was recently seen at urgent care who referred her here to the emergency department. TRAVEL OUTSIDE OF THE U.S. IN LAST 30 DAYS: No - Related Data Allergies/Adverse Reactions: amoxicillin Allergy (Verified 06/13/17 09:56) clavulanic acid [From Augmentin] Allergy (Verified 06/13/17 09:56) Penicillins Allergy (Verified 06/13/17 09:56) tramadol Allergy (Verified 06/13/17 09:56) Past Medical History Renal/ Medical History: Reports: Hx Ovarian Cysts - PCO S. Denies: Hx Peritoneal Dialysis GI Medical History: Reports: Hx Gastroesophageal Reflux Disease, Hx Irritable Bowel, Hx Colonoscopy, Hx Endoscopy Musculoskeltal Medical History: Reports Hx Musculoskeletal Deformity, Reports Hx Musculoskeletal Trauma Psychiatric Medical History: Reports: Hx Anxiety Traumatic Medical History: Reports: Hx Fractures - Rib and toe Infectious Medical History: Reports: Hx C-Diff Past Surgical History: Reports: Hx Cholecystectomy - Immunizations Immunizations up to date: Yes Hx Diphtheria, Pertussis, Tetanus Vaccination: Yes Physical Exam - Vital signs Vitals: Temp Pulse Resp BP Pulse Ox 98.5 F 74 16 116/68 100 06/13/17 09:58 06/13/17 09:58 06/13/17 09:58 06/13/17 09:58 06/13/17 09:58 Course - Vital Signs Vital signs: Temp Pulse Resp BP Pulse Ox 98.5 F 74 16 116/68 100 06/13/17 09:58 06/13/17 09:58 06/13/17 09:58 06/13/17 09:58 06/13/17 09:58
[2017-06-13 11:02] LABS: ABSOLUTE EOSINOPHILS # (AUTO) 0.1 10^3/uL (0.0-0.6); ABSOLUTE LYMPHOCYTES (AUTO) 1.9 10^3/uL (0.5-4.7); ABSOLUTE MONOCYTES (AUTO) 0.2 10^3/uL (0.1-1.4); ABSOLUTE NEUT (AUTO) 2.3 10^3/uL (1.7-8.2); BASOPHILS % (AUTO) 0.5 % (0-2); EOSINOPHILS % (AUTO) 1.1 % (0-6); HEMATOCRIT 41.6 % (36.0-47.0); HEMOGLOBIN 13.9 g/dL (12.0-15.5); HGB HCT DIFFERENCE 0.1; MEAN CORPUSCULAR HEMOGLOBIN 30.7 pg (27.0-33.4); MEAN CORPUSCULAR HGB CONC 33.5 g/dL (32.0-36.0); MEAN CORPUSCULAR VOLUME 92 fl (80-97); MONOCYTES % (AUTO) 5.4 % (3-13); RED BLOOD COUNT 4.54 10^6/uL (3.72-5.28); RED CELL DISTRIBUTION WIDTH 13.6 % (11.5-14.0); WHITE BLOOD COUNT 4.6 10^3/uL (4.0-10.5)
[2017-06-13 11:19] LABS: APPEARANCE,URINE CLEAR; BILIRUBIN,URINE NEGATIVE (NEGATIVE); GLUCOSE, URINE NEGATIVE (NEGATIVE); KETONES,URINE NEGATIVE (NEGATIVE); LEUKOCYTE ESTERASE,URINE MODERATE (NEGATIVE); NITRITE,URINE NEGATIVE (NEGATIVE); PROTEIN,URINE NEGATIVE (NEGATIVE); URINE SPECIFIC GRAVITY 1.003; UROBILINOGEN,URINE NEGATIVE mg/dL (<2.0)
[2017-06-13 11:26] LABS: ALANINE AMINOTRANSFERASE 34 U/L (9-52); ALBUMIN 4.5 g/dL (3.5-5.0); ALKALINE PHOSPHATASE 67 U/L (38-126); ANION GAP 10 (5-19); ASPARTATE AMINO TRANSFERASE 37 U/L (14-36); BILIRUBIN,DIRECT 0.2 mg/dL (0.0-0.4); BILIRUBIN,TOTAL 0.3 mg/dL (0.2-1.3); BLOOD UREA NITROGEN 5 mg/dL (7-20); CALCIUM 9.9 mg/dL (8.4-10.2); CARBON DIOXIDE 27 mmol/L (22-30); CHLORIDE 108 mmol/L (98-107); CREATININE RESULT 0.95 mg/dL (0.52-1.25); GLUCOSE 80 mg/dL (75-110); LIPASE 128.3 U/L (23-300); POTASSIUM 4.6 mmol/L (3.6-5.0); SODIUM 144.9 mmol/L (137-145); TOTAL PROTEIN 6.7 g/dL (6.3-8.2)
[2017-06-13] MEDS ORDERED: KETOROLAC TROMETHAMINE INJ/PF 30 MG/1 ML SDV IV ONE (13:14)
--- NOTE | 2017-06-13 15:41 | RADIOLOGY REPORT (SQ) ---
EXAM DESCRIPTION: U/S NON OB PEL TV W/DOPPLER COMPLETED DATE/TIME: 06/13/2017 3:25 pm REASON FOR STUDY: LLQ pain, Hx ovarian cyst rupture LMP approximately 04/13/2017 COMPARISON: None. TECHNIQUE: Dynamic and static grayscale images acquired of the pelvis via transvaginal approach and recorded on PACS. Additional selected color Doppler and spectral images recorded. LIMITATIONS: None. FINDINGS: UTERUS: Contour normal. No mass. ENDOMETRIAL STRIPE: No focal or generalized thickening. No masses. CERVIX: 2.2 cm. Possible 2.1 x 1.4 x 1.3 cervical fibroid. RIGHT OVARY: Not able to be seen. RIGHT OVARY DOPPLER: Ovary not seen LEFT OVARY: No abnormal masses. LEFT OVARY DOPPLER: Normal arterial vascular flow without evidence for torsion. FREE FLUID: None noted. OTHER: No other significant finding. MEASUREMENTS: UTERUS: 7 x 3 x 4.4 cm. ENDOMETRIAL STRIPE: 2 mm. RIGHT OVARY: Ovary not seen. LEFT OVARY: 2.2 x 1.5 x 2.4 cm. IMPRESSION: This that should normal study. There may be a small cervical fibroid. TECHNICAL DOCUMENTATION: JOB ID: [id number] [employer]- All Rights Reserved
--- NOTE | 2017-06-13 15:57 | ER Document Report ---
ED GI/ - General Chief Complaint: Abdominal Pain Stated Complaint: ABDOMINAL PAIN Time Seen by Provider: 06/13/17 10:15 Notes: Patient is having left lower quadrant abdominal tenderness which she attributes to "colitis" that she has been having symptoms of for the past week or more. She went to the local [facility] on and had lab work done, no imaging, and was told everything was okay and given a prescription for pain medications ([place]) which is now gone and medications for nausea and vomiting. Patient says she has a history of inflammatory bowel disease and sees a tire wrapper in [place]. Has an appointment to see him in August. Says that her current medications are Bentyl and Amitiza, which are not helping. Says that she has had nausea but not vomiting much. Has had diarrhea 2 or 3 times a day for the last couple of weeks, but no blood has been present. Last bowel movement was this morning. Has felt as if she has a fever. Patient has seen our local [facility] doctors for pelvic pain and was told to take continuous control pills for the past couple of months without having a period. Her last cycle was in March. Patient has a history of a ruptured ovarian cyst on the left side. It was diagnosed by an ultrasound in a physician 's office. Patient's diagnosis of inflammatory bowel disease was made by endoscopy and not with CT scan. Also has a history of GERD. History of anxiety. TRAVEL OUTSIDE OF THE [place] IN LAST 30 DAYS: No - Related Data Allergies/Adverse Reactions: amoxicillin Allergy (Verified 06/13/17 09:56) clavulanic acid [From Augmentin] Allergy (Verified 06/13/17 09:56) Penicillins Allergy (Verified 06/13/17 09:56) tramadol Allergy (Verified 06/13/17 09:56) Home Medications: Current Home Medications Clonazepam [Clonazepam] 1 tab PO TID PRN 06/13/17 [History] Eszopiclone [Eszopiclone] 1 tab PO QHS 06/13/17 [History] Past Medical History - Social History Smoking Status: Never Smoker Frequency of alcohol use: None Drug Abuse: None Family History: Reviewed & Not Pertinent, Malignancy Patient has suicidal ideation: No Patient has homicidal ideation: No Renal/ Medical History: Reports: Hx Ovarian Cysts - PCO S GI Medical History: Reports: Hx Gastroesophageal Reflux Disease, Hx Irritable Bowel, Hx Colonoscopy, Hx Endoscopy Musculoskeltal Medical History: Reports Hx Musculoskeletal Deformity, Reports Hx Musculoskeletal Trauma Psychiatric Medical History: Reports: Hx Anxiety Traumatic Medical History: Reports: Hx Fractures - Rib and toe Infectious Medical History: Reports: Hx C-Diff Past Surgical History: Reports: Hx Cholecystectomy - Immunizations Immunizations up to date: Yes Hx Diphtheria, Pertussis, Tetanus Vaccination: Yes Review of Systems - Review of Systems Notes: REVIEW OF SYSTEMS: CONSTITUTIONAL : She has had a low-grade fever. EENT: Denies eye, ear, nose or mouth or throat pain or other symptoms. CARDIOVASCULAR: Denies chest pain. RESPIRATORY: Denies cough, chest congestion, or shortness of breath. GASTROINTESTINAL: HPI. GENITOURINARY: Denies difficulty or painful urinating, urinary frequency, blood in urine. MUSCULOSKELETAL: Denies back or neck pain. Denies joint pain or swelling. SKIN: Denies rash or skin lesions. NEUROLOGICAL: Denies LOC or altered mental status. Denies headache. Denies sensory loss or motor deficits. ALL OTHER SYSTEMS REVIEWED AND NEGATIVE. Physical Exam - Vital signs Vitals: Temp Pulse Resp BP Pulse Ox 98.5 F 74 16 116/68 100 06/13/17 09:58 06/13/17 09:58 06/13/17 09:58 06/13/17 09:58 06/13/17 09:58 Interpretation: Normal - Notes Notes: PHYSICAL EXAMINATION: GENERAL: Well-appearing, in no acute distress. Seem to be holding her left lower quadrant through most of the time in the ED. Seems to be having some pain. Vital signs are all normal. HEAD: Atraumatic, normocephalic. EYES: Pupils equal round and reactive to light, extraocular movements intact. ENT: oropharynx clear without exudates. Moist mucous membranes. NECK: Normal range of motion, supple. LUNGS: Breath sounds clear and equal bilaterally. HEART: Regular rate and rhythm without murmurs. ABDOMEN: Soft, tender in the left lower quadrant, but no guarding or rebound. No masses felt. BACK: No tenderness throughout entire back. EXTREMITIES: Normal range of motion without pain. NEUROLOGICAL: Normal speech, normal gait. Normal sensory, motor, and reflex exams. Awake, alert, and oriented x3. Cranial nerves normal. PSYCH: Normal mood, normal affect. SKIN: Warm, dry, no rashes. Course - Re-evaluation Re-evalutation: 06/13/17 20:11 I called the office of Dr. Rutledge, in [place], area code [phone]. I was not able to speak with Dr. Pinon, but did speak with a nurse practitioner who is familiar with this patient. She says the patient does not have colitis or ulcerative colitis, rather, the patient has IBS.. They also said patient frequently misses her scheduled appointments. - Vital Signs Vital signs: Temp Pulse Resp BP Pulse Ox 98.9 F 56 L 22 H 107/51 L 98 06/13/17 16:04 06/13/17 16:04 06/13/17 16:04 06/13/17 16:04 06/13/17 16:04 - Laboratory Result Diagrams: 06/13/17 10:45 06/13/17 10:45 Laboratory results interpreted by me: 06/13/17 06/13/17 10:45 10:45 Chloride 108 H BUN 5 L AST 37 H Urine Blood SMALL H Ur Leukocyte Esterase MODERATE H 06/13/17 20:12 Lab studies are all essentially normal. Possible UTI. Urine will be cultured. I will check on the results. Discharge - Discharge Clinical Impression: Abdominal pain Condition: Stable Disposition: HOME, SELF-CARE Additional Instructions: ABDOMINAL PAIN: There are many causes of abdominal pain. Pain can mean a serious problem requiring surgery (such as appendicitis). It can also be an innocent problem that goes away on its own (such as a viral infection). Often, time must pass to determine the cause of pain. The physician does not feel that hospitalization is necessary, at present. Things may change within the next 24 hours. Call the doctor or come back for re- examination if any problems occur, such as: (1) Pain that becomes more severe, steady, or becomes concentrated in one specific area. Also, pain that is more severe with movement or coughing. (2) Vomiting that persists or becomes more frequent. (3) Blood in the vomitus, urine, or bowel movements. Blood in the stool may have a tarry or black appearance. (4) Shaking chills or fever greater than 100 degrees F. (5) The abdomen becomes more distended or swollen. (6) Bowel movements cease. (7) Failure to improve as expected. NORMAL EXAM AND WORKUP: At this time, your examination and workup show no significant abnormality. No significant abnormal physical findings are noted. All laboratory, EKG, and imaging (x-ray, CT scans, ultrasound) studies that were ordered show no significant abnormality. Although your examination and all studies that were ordered showed no significant abnormal finding, there are no examinations and no studies that are 100% accurate. There is always the possibility that some abnormality could exist and not be detected with physical examination or within the limits and capabilities of laboratory and other studies. You should return or follow up as you were instructed on your visit today for further evaluation if your symptoms do not resolve. TORADOL INJECTION: You have been given an injection of ketorolac tromethamine (Toradol). This is an excellent, safe drug for pain control. It also has potent antiinflammatory action. You should have significant pain relief within about one hour. Toradol is not addicting and is non-sedating. It does not interfere with driving or work. Call or return if you develop itching, hives, shortness of breath, or rash. ANTINAUSEA MEDICATION: You have been given a medication to suppress nausea and vomiting. This type of medication can be given as a shot, pill, or suppository. It will usually last for many hours. Pills and shots usually last six to eight hours, suppositories last about 12 hours. For the typical illness, only one or two doses of the medication may be necessary. Mild lightheadedness may occur. This type of medicine can cause drowsiness. Do not drive or operate dangerous machinery while under its influence. Do not mix with alcohol. See your doctor at once if you have muscle spasms or tightness, or uncontrollable motions (particularly of the neck, mouth, or jaw). Persistent vomiting or severe lightheadedness should also be evaluated by the physician. ANTISPASMODICS: You have been given a prescription for an antispasmodic medicine. This type of drug is used to decrease cramping and pain in the intestines. It is also used to decrease secretion of internal fluids (such as stomach acid in ulcer disease or pancreatic juice in pancreas disease). This medicine may cause drowsiness, especially with the first dose. Do not operate machinery or drive until all side effects have resolved. Do not combine with alcohol. Other common side effects include dry mouth and eyes. In older persons, antispasmodics can occasionally cause urinary retention, constipation, or trouble focusing the eyes. Glaucoma may be worsened by this medicine. Take your Bentyl 40 mg 4 times a day as needed for the pain. Take your nausea medication that you have, as well. Follow-up with your tire wrapper. FOLLOW-UP CARE: If you have been referred to a physician for follow-up care, call the physician s office for an appointment as you were instructed or within the next two days. If you experience worsening or a significant change in your symptoms, notify the physician immediately or return to the Emergency Department at any time for re-evaluation.
[2017-06-13 16:05] VITALS: BP 107/51
== END 2017-06-13 16:21 | disposition home or self-care (01) ==
LOC: ER 09:53
DX: K58.0 Irritable bowel syndrome with diarrhea (principal); Z79.899 Other long term (current) drug therapy; E28.2 Polycystic ovarian syndrome; R10.814 Left lower quadrant abdominal tenderness; R11.0 Nausea; R50.9 Fever, unspecified; Z88.0 Allergy status to penicillin; Z88.5 Allergy status to narcotic agent; Z90.49 Acquired absence of other specified parts of digestive tract
CPT/HCPCS: 96376; 99284; 96361; 96374; 96375; 36415; 87086; 83690; 85025; 81025; 80053; 81001; 76830; 93976; J1885; J2270; J2405; J7030